=== PATIENT | female | born 1980 | race Caucasian/White ===

== ENCOUNTER 2018-06-20 22:56 | Inpatient (IN) ==
[2018-06-20] MEDS ORDERED: *HR* Dextrose 50 % in Water (Syg) 50 ML SYRINGE IVP PRN (23:15)
--- NOTE | 2018-06-20 23:17 | Emergency Department Note ---
Disposition Clinical Impression: DKA (diabetic ketoacidoses) Qualifiers: Diabetes mellitus type: type 1 Diabetes mellitus complication detail: without coma Qualified Code(s): E10.10 - Type 1 diabetes mellitus with ketoacidosis without coma Disposition: Admitted As Inpatient Condition: Fair Time of Disposition: 02:08 General Adult HPI - General Chief complaint: ED Nausea/Vomiting/Diarrhea Stated complaint: "Im in DKA" Time Seen by Provider: 06/20/18 23:14 Source: patient, family Limitations: no limitations Nursing Notes Reviewed: Yes Vital Signs Reviewed: Yes - History of Present Illness HPI Narrative: Patient is a 38-year-old female who presents to [facility] ED with a chief complaint of nausea and vomiting. States she feels like she is in diabetic ketoacidosis. Patient has a past medical history of type 1 diabetes with an insulin pump. States she has not gone into DKA except once over the last 5 years ever since she started on her insulin pump. States her blood sugars have been running in the 200s normally but then a little higher over the last month due to her recent stress of a divorce. States she has also been sick with a sinus infection about a week ago. States over the last day, her glucose has been running high in the 500s. Patient around 5 PM, she started having intractable nausea and vomiting. States she does have some epigastric abdominal pain but states she feels this is purely related to her vomiting. Denies any chest pain, difficulty breathing, recent cough, problems with urination or bowel movements. Onset (ago): hour(s) Location: abdomen Pain Severity: mild Pain Scale: 5 Quality: aching Consistency: intermittent Improves with: nothing Worsens with: other (vomiting) Associated symptoms: Reports: nausea/vomiting. Denies: chest pain, cough, fever /chills, headaches, shortness of breath, weakness Treatments Prior to Arrival: none - Related Data Previous Rx's Medication Instructions Recorded Ibuprofen [Motrin] 600 mg PO Q6HR PRN #24 tab 02/24/18 Allergies Allergy/AdvReac Type Severity Reaction Status Date / Time desvenlafaxine [From Pristiq] Allergy Swelling Verified 02/24/18 09:49 duloxetine [From Cymbalta] AdvReac Suicidal Verified 02/24/18 09:49 ideations All systems ED: reviewed and negative except as stated. Past Medical History - Past Medical History Attestation: Yes The following information was validated with the patient. 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 - Social History Smoking Status: Never smoker Smokeless Tobacco Status: No Alcohol use: Reports: none Drug use: Reports: none Physical Exam - General Limitations: no limitations General appearance: alert, in no apparent distress - Head Head exam: atraumatic, normocephalic, normal inspection - Eye Eye exam: Present: EOMI - ENT ENT exam: normal exam, normal oropharynx, mucous membranes dry - Neck Neck exam: Present: normal inspection, full ROM, trachea midline - Chest Chest inspection: Present: normal inspection, symmetric chest wall rise - Respiratory Respiratory exam: Present: normal lung sounds bilaterally - Cardiovascular Cardiovascular exam: Present: regular rate, normal rhythm, normal heart sounds - Abdominal Exam Abdominal exam: Present: soft, Non-Tender. Absent: tenderness, distention, guarding, rebound, rigidity - Extremities Exam Extremities exam: Present: normal inspection, full ROM. Absent: tenderness, pedal edema - Neurological Exam Neurological exam: Present: alert, oriented X3 - Psychiatric Psychiatric exam: Present: normal affect, normal mood - Skin Skin exam: Present: warm, dry, intact, normal color Course Course Narrative: Patient seen and examined. Patient with complaints of possible DKA. Lab work, VBG, serum ketones, urine analysis ordered. We will start with a 2 L fluid bolus. We will get a milligrams of Zofran for nausea. - Reevaluation(s) Reevaluation #1: Labwork shows elevated serum ketones greater than 2, a bicarbonate of 10, anion gap of 25, and pH of 7.26 on VBG. Patient is in DKA. Insulin drip ordered. We will admit to hospitalist. Time: 01:12 Reevaluation #2: Discussed with the hospitalist Dr. Stephens who has accepted patient for admission. He would like patient to be given 2 g of Rocephin to cover her for her possible sinusitis. Time: 02:07 Vital Signs Temperature 98.0 F 06/20/18 23:02 Pulse Rate 118 06/20/18 23:02 Respiratory Rate 16 06/20/18 23:02 Blood Pressure 146/91 06/20/18 23:02 O2 Sat by Pulse Oximetry 100 06/20/18 23:02 Temperature 98.0 F 06/20/18 23:02 Pulse Rate 117 06/21/18 04:15 Respiratory Rate 16 06/21/18 02:45 Blood Pressure 111/62 06/21/18 02:45 O2 Sat by Pulse Oximetry 99 06/21/18 02:45 Oxygen Delivery Oxygen Delivery Room Air Medical Decision Making - Medical Records Medical records reviewed: Yes I reviewed the patient's medical records. - Lab Data Lab results reviewed: Yes I reviewed the patient's lab results. Result diagrams: 06/21/18 06:17 06/21/18 03:58 Lab Results 06/20/18 06/20/18 06/20/18 Range/Units 23:00 23:01 23:08 WBC (4.3-11.1) K/mcL RBC (3.82-4.97) M/mcL Hgb (11.5-15.4) g/dL Hct (35.3-44.9) % MCV (83.0-100.0) fL MCH (28.0-33.3) pg MCHC (31.6-35.5) g/dL RDW (11.5-14.5) % Plt Count (140-400) K/mcL MPV (9.4-12.4) fL Immature Gran % (0-4) % Seg Neutrophils % % Lymphocytes % % Monocytes % % Eosinophils % % Basophils % % Neutrophils # (1.6-8.9) K/mcL Lymphocytes # (0.6-4.6) K/mcL Monocytes # (0.0-1.3) K/mcL Eosinophils # (0.0-0.6) K/mcL Basophils # (0.0-0.2) K/mcL VBG pH (7.32-7.42) pH Units VBG pCO2 (41-51) mmHg VBG pO2 (25-50) mmHg VBG HCO3 (21-27) mEq/L Sodium (136-145) mEq/L Potassium (3.5-5.1) mEq/L Chloride (98-107) mEq/L Carbon Dioxide (23-29) mEq/L BUN (6-20) mg/dL Creatinine (0.60-1.20) mg/dL Est GFR ( Amer) (> 60) Est GFR (Non-Af Amer) (> 60) BUN/Creatinine Ratio (6-26) Glucose (70-105) mg/dL POC Glucose 559 H* 562 H* (70-99) mg/dL Calculated Osmolality (280-300) Lactic Acid (0.5-2.2) mmol/L Calcium (8.6-10.3) mg/dL Troponin I (< 0.04) ng/mL Lipase (11-82) Units/L Beta-Hydroxybutyric Acd (0.02-0.27) mmol/L Urine Color Yellow (Yellow) Urine Clarity Clear (Clear) Urine pH 5.5 (5.0-8.0) pH Units Ur Specific [place] 1.029 H (1.010-1.025) Urine Protein 100 H (Neg-Trace) mg/dL Urine Glucose (UA) >=1000 H (Normal) mg/dL Urine Ketones 80 H (Negative) mg/dL Urine Blood Trace H (Negative) Urine Nitrite Negative (Negative) Urine Bilirubin Negative (Negative) Urine Urobilinogen Normal (Normal) mg/dL Ur Leukocyte Esterase Negative (Negative) Urine Microscopic RBC 0-3 (0-3) per hpf Urine Microscopic WBC 0-3 (0-3) per hpf Ur Squamous Epith Cells Many H (None-Few) per lpf Urine Bacteria None Seen (None-Few) per hpf Hyaline Casts None Seen (None-Few) per lpf Ur Culture Indicated? NO (NO) Urine Test (Negative) 06/20/18 06/20/18 06/20/18 Range/Units 23:08 23:15 23:31 WBC 16.7 H (4.3-11.1) K/mcL RBC 4.53 (3.82-4.97) M/mcL Hgb 13.7 (11.5-15.4) g/dL Hct 39.6 (35.3-44.9) % MCV 87.4 (83.0-100.0) fL MCH 30.2 (28.0-33.3) pg MCHC 34.6 (31.6-35.5) g/dL RDW 12.3 (11.5-14.5) % Plt Count 361 (140-400) K/mcL MPV 9.7 (9.4-12.4) fL Immature Gran % 0.6 (0-4) % Seg Neutrophils % 90.2 % Lymphocytes % 6.5 % Monocytes % 2.3 % Eosinophils % 0.1 % Basophils % 0.3 % Neutrophils # 15.1 H (1.6-8.9) K/mcL Lymphocytes # 1.1 (0.6-4.6) K/mcL Monocytes # 0.4 (0.0-1.3) K/mcL Eosinophils # 0.0 (0.0-0.6) K/mcL Basophils # 0.1 (0.0-0.2) K/mcL VBG pH (7.32-7.42) pH Units VBG pCO2 (41-51) mmHg VBG pO2 (25-50) mmHg VBG HCO3 (21-27) mEq/L Sodium (136-145) mEq/L Potassium (3.5-5.1) mEq/L Chloride (98-107) mEq/L Carbon Dioxide (23-29) mEq/L BUN (6-20) mg/dL Creatinine (0.60-1.20) mg/dL Est GFR ( Amer) (> 60) Est GFR (Non-Af Amer) (> 60) BUN/Creatinine Ratio (6-26) Glucose (70-105) mg/dL POC Glucose (70-99) mg/dL Calculated Osmolality (280-300) Lactic Acid (0.5-2.2) mmol/L Calcium (8.6-10.3) mg/dL Troponin I < 0.03 (< 0.04) ng/mL Lipase (11-82) Units/L Beta-Hydroxybutyric Acd (0.02-0.27) mmol/L Urine Color (Yellow) Urine Clarity (Clear) Urine pH (5.0-8.0) pH Units Ur Specific [place] (1.010-1.025) Urine Protein (Neg-Trace) mg/dL Urine Glucose (UA) (Normal) mg/dL Urine Ketones (Negative) mg/dL Urine Blood (Negative) Urine Nitrite (Negative) Urine Bilirubin (Negative) Urine Urobilinogen (Normal) mg/dL Ur Leukocyte Esterase (Negative) Urine Microscopic RBC (0-3) per hpf Urine Microscopic WBC (0-3) per hpf Ur Squamous Epith Cells (None-Few) per lpf Urine Bacteria (None-Few) per hpf Hyaline Casts (None-Few) per lpf Ur Culture Indicated? (NO) Urine Test Negative (Negative) 06/20/18 06/20/18 06/20/18 Range/Units 23:54 23:54 23:54 WBC (4.3-11.1) K/mcL RBC (3.82-4.97) M/mcL Hgb (11.5-15.4) g/dL Hct (35.3-44.9) % MCV (83.0-100.0) fL MCH (28.0-33.3) pg MCHC (31.6-35.5) g/dL RDW (11.5-14.5) % Plt Count (140-400) K/mcL MPV (9.4-12.4) fL Immature Gran % (0-4) % Seg Neutrophils % % Lymphocytes % % Monocytes % % Eosinophils % % Basophils % % Neutrophils # (1.6-8.9) K/mcL Lymphocytes # (0.6-4.6) K/mcL Monocytes # (0.0-1.3) K/mcL Eosinophils # (0.0-0.6) K/mcL Basophils # (0.0-0.2) K/mcL VBG pH (7.32-7.42) pH Units VBG pCO2 (41-51) mmHg VBG pO2 (25-50) mmHg VBG HCO3 (21-27) mEq/L Sodium 128 L (136-145) mEq/L Potassium 5.2 H (3.5-5.1) mEq/L Chloride 93 L (98-107) mEq/L Carbon Dioxide 10 L* (23-29) mEq/L BUN 33 H (6-20) mg/dL Creatinine 1.24 H (0.60-1.20) mg/dL Est GFR ( Amer) 59 L (> 60) Est GFR (Non-Af Amer) 49 L (> 60) BUN/Creatinine Ratio 27 H (6-26) Glucose 638 H* (70-105) mg/dL POC Glucose (70-99) mg/dL Calculated Osmolality 303 H (280-300) Lactic Acid 1.7 (0.5-2.2) mmol/L Calcium 9.4 (8.6-10.3) mg/dL Troponin I (< 0.04) ng/mL Lipase 5 L (11-82) Units/L Beta-Hydroxybutyric Acd > 2.00 H (0.02-0.27) mmol/L Urine Color (Yellow) Urine Clarity (Clear) Urine pH (5.0-8.0) pH Units Ur Specific [place] (1.010-1.025) Urine Protein (Neg-Trace) mg/dL Urine Glucose (UA) (Normal) mg/dL Urine Ketones (Negative) mg/dL Urine Blood (Negative) Urine Nitrite (Negative) Urine Bilirubin (Negative) Urine Urobilinogen (Normal) mg/dL Ur Leukocyte Esterase (Negative) Urine Microscopic RBC (0-3) per hpf Urine Microscopic WBC (0-3) per hpf Ur Squamous Epith Cells (None-Few) per lpf Urine Bacteria (None-Few) per hpf Hyaline Casts (None-Few) per lpf Ur Culture Indicated? (NO) Urine Test (Negative) 06/21/18 06/21/18 Range/Units 00:10 03:58 WBC (4.3-11.1) K/mcL RBC (3.82-4.97) M/mcL Hgb (11.5-15.4) g/dL Hct (35.3-44.9) % MCV (83.0-100.0) fL MCH (28.0-33.3) pg MCHC (31.6-35.5) g/dL RDW (11.5-14.5) % Plt Count (140-400) K/mcL MPV (9.4-12.4) fL Immature Gran % (0-4) % Seg Neutrophils % % Lymphocytes % % Monocytes % % Eosinophils % % Basophils % % Neutrophils # (1.6-8.9) K/mcL Lymphocytes # (0.6-4.6) K/mcL Monocytes # (0.0-1.3) K/mcL Eosinophils # (0.0-0.6) K/mcL Basophils # (0.0-0.2) K/mcL VBG pH 7.23 L (7.32-7.42) pH Units VBG pCO2 31 L (41-51) mmHg VBG pO2 66 H (25-50) mmHg VBG HCO3 13 L (21-27) mEq/L Sodium 133 L (136-145) mEq/L Potassium 4.2 (3.5-5.1) mEq/L Chloride 102 (98-107) mEq/L Carbon Dioxide 7 L* (23-29) mEq/L BUN 34 H (6-20) mg/dL Creatinine 1.16 (0.60-1.20) mg/dL Est GFR ( Amer) > 60 (> 60) Est GFR (Non-Af Amer) 53 L (> 60) BUN/Creatinine Ratio 29 H (6-26) Glucose 449 H (70-105) mg/dL POC Glucose (70-99) mg/dL Calculated Osmolality 303 H (280-300) Lactic Acid (0.5-2.2) mmol/L Calcium 8.7 (8.6-10.3) mg/dL Troponin I (< 0.04) ng/mL Lipase (11-82) Units/L Beta-Hydroxybutyric Acd (0.02-0.27) mmol/L Urine Color (Yellow) Urine Clarity (Clear) Urine pH (5.0-8.0) pH Units Ur Specific [place] (1.010-1.025) Urine Protein (Neg-Trace) mg/dL Urine Glucose (UA) (Normal) mg/dL Urine Ketones (Negative) mg/dL Urine Blood (Negative) Urine Nitrite (Negative) Urine Bilirubin (Negative) Urine Urobilinogen (Normal) mg/dL Ur Leukocyte Esterase (Negative) Urine Microscopic RBC (0-3) per hpf Urine Microscopic WBC (0-3) per hpf Ur Squamous Epith Cells (None-Few) per lpf Urine Bacteria (None-Few) per hpf Hyaline Casts (None-Few) per lpf Ur Culture Indicated? (NO) Urine Test (Negative) - Radiology Data Radiology results reviewed: Yes I reviewed the patient's radiology results. Chest X-Ray 06/21/18 23:31 IMPRESSION: No acute cardiopulmonary disease. Low lung volumes. D/ / Chavo Hensley MD / Chavo Hensley MD Interpreting Provider: Chavo Hensley MD - EKG Data EKG #1 EKG attestation: Yes I reviewed and interpreted this EKG. EKG results narrative: EKG done at 0005 shows sinus tachycardia with a rate of [address] elevation or depression noted. Normal axis. Attestation Statement - Attestation Attestation: I, Fredo Erwin, examined this patient and my medical decision-making was reviewed with the CHILD SUPPORT SPECIALIST/PA/Advanced Practice Nurse/Resident Physician. I agree with the documented findings, disposition and treatment plan as described except to the extent set forth below. 38-year-old female presents emergency Department with concerns of possible DKA. Patient states she has a long history of diabetes and uses an insulin pump. Patient has moved the side of her insulin pump multiple times however she continues to see her blood sugar increasing. Patient denies chest pain, shortness breath, abdominal pain, vaginal bleeding, vaginal discharge. No recent changes in her medications. She is otherwise fairly well-controlled with her diabetes. Patient has a large anion gap on laboratory evaluation. She has evidence of ketones on laboratory testing. We are unable to find a cause for her hyperglycemia. She was given IV fluids in emergency department. She will be admitted to the hospitalist for further care and evaluation.
[2018-06-20 23:25] LABS: Bilirubin,Urine Negative (Negative); Blood,Urine Trace (Negative); Clarity,Urine Clear (Clear); Color,Urine Yellow (Yellow); Glucose,Urine (UA) >=1000 mg/dL (Normal); Ketones,Urine 80 mg/dL (Negative); Leukocyte Esterase,Urine Negative (Negative); Nitrite,Urine Negative (Negative); PH,Urine 5.5 pH Units (5.0-8.0); Protein,Urine 100 mg/dL (Neg-Trace); Specific Gravity,Urine 1.029 (1.010-1.025); Urobilinogen,Urine Normal (Normal)
[2018-06-20 23:26] LABS: Bacteria,Urine None Seen per hpf (None-Few); Hyaline Casts,Urine None Seen per lpf (None-Few); RBC,Urine 0-3 per hpf (0-3); Squamous Epithelial Cell,Urine Many per lpf (None-Few); WBC,Urine 0-3 per hpf (0-3)
[2018-06-21 00:15] LABS: VBG HCO3 13 mEq/L (21-27); VBG PCO2 31 mmHg (41-51); VBG PH 7.23 pH Units (7.32-7.42); VBG PO2 66 mmHg (25-50)
[2018-06-21] MEDS: 0.9 % Sodium Chloride 1,000 ML IVC SCH ×2 (00:16→01:45)
[2018-06-21 00:35] LABS: Basophils # 0.1 K/mcL (0.0-0.2); Basophils % 0.3 %; Eosinophils % 0.1 %; Hematocrit 39.6 % (35.3-44.9); Hemoglobin 13.7 g/dL (11.5-15.4); Immature Granulocytes % 0.6 % (0-4); Lymphocytes # 1.1 K/mcL (0.6-4.6); Lymphocytes % 6.5 %; Mean Corpuscular HGB Conc 34.6 g/dL (31.6-35.5); Mean Corpuscular Hemoglobin 30.2 pg (28.0-33.3); Mean Corpuscular Volume 87.4 fL (83.0-100.0); Mean Platelet Volume 9.7 fL (9.4-12.4); Monocytes # 0.4 K/mcL (0.0-1.3); Monocytes % 2.3 %; Neutrophils # 15.1 K/mcL (1.6-8.9); Platelet Count 361 K/mcL (140-400); Red Blood Count 4.53 M/mcL (3.82-4.97); Red Cell Distribution Width 12.3 % (11.5-14.5); Segmented Neutrophils % 90.2 %
[2018-06-21 00:44] LABS: Calcium 9.4 mg/dL (8.6-10.3); Potassium 5.2 mEq/L (3.5-5.1)
[2018-06-21] MEDS ORDERED: Ondansetron 4 MG/2 ML VIAL IVP ONE (00:53)
[2018-06-21] MEDS ORDERED: Ondansetron 4 MG/2 ML VIAL ONE (00:53)
[2018-06-21] MEDS: Insulin Human Regular 100 UNIT in 0.9 % Sodium Chloride 100 ML IVC SCH ×2 (01:45→08:11)
[2018-06-21] MEDS ORDERED: Naloxone 0.4 MG/ML INJ IVP PRN ×2 (01:47→03:35)
[2018-06-21] MEDS ORDERED: Insulin Regular, Human 100 UNIT/ML IV PRN (01:47)
[2018-06-21] MEDS ORDERED: 0.45 % Sodium Chloride w/KCl 20 MEQ/1,000 ML MLS IVC PRN (02:00)
[2018-06-21] MEDS ORDERED: cefTRIAXone 2,000 MG in Water for inj. (sterile) 20 ML 20 ML IVP ONE (02:02)
[2018-06-21] MEDS ORDERED: Ondansetron 4 MG/2 ML VIAL IVP PRN (02:18)
--- NOTE | 2018-06-21 02:26 | Internal Med History&Physical ---
<Oneil Sellers - Last Filed: 06/21/18 05:27> Date of Encounter: 06/21/18 Time of Encounter: 02:22 Internal Medicine - H&P: HPI Chief complaint: Im in DKA Admitted From: Home Plans for Post Hospital Care: Home History of present illness: Ms. Zapata is a 38 year old female with history of type 1 diabetes mellitus presents with chief complaint of "I am in DKA". Patient reports for the past 48 hours she has been feeling weak, tired and her glucose has been running high in the 500s. She has had DKA in the past, with her previous episode being 5 years ago and she feels the same way. She also reports nausea, vomiting and abdominal pain secondary to this. She denies fever, diaphoresis, chills. Normally her glucose runs in the 200s. She reports she has been going through a lot of stress in her life including divorce. She also reports having a upper respiratory infection 2 weeks ago where she was started on doxycycline for 7 days which improved her symptoms but her symptoms returned 5 days ago. 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 She reports a sore throat, postnasal drip, sinus congestion. She denies cough, chest congestion, shortness of breath. Patient was found in DKA and was started on IV insulin and given 2 L IV fluids. VBG pH was 7.23. She was also given IM ceftriaxone for possible sinusitis in the ER. Past Med Surg Social Fam HX - Past Medical History Medical history: diabetes, hyperlipidemia, renal disease (CK D2), other Additional medical history: Type I diabetic. Stage II renal disease. Retinopathy. Neuropathy Psychiatric history: anxiety - Past Surgical History Additional surgical history: tubes tied - Social History Smoking Status: Never smoker Smokeless Tobacco Status: No Alcohol use: none Drug use: none Occupational status: employed Current living situation: Home - Independent Activity Level: Independent ambulation - Family History Mother Hx Family Cardiac Disorders: Yes (Hypertension) Father Hx Family Cardiac Disorders: Yes Internal Medicine - H&P: Meds Amlodipine Besylate 10 mg PO DAILY 06/21/18 [History] Atorvastatin [Lipitor] 40 mg PO HS 06/21/18 [History] Buspirone HCl [Buspar] 10 mg PO Q12HR PRN 06/21/18 [History] Carvedilol 12.5 mg PO BID 06/21/18 [History] FLUoxetine HCl [Fluoxetine HCl] 40 mg PO DAILY 06/21/18 [History] Gabapentin [Neurontin] 300 mg PO TID PRN 06/21/18 [History] Levothyroxine Sodium [Levoxyl] 50 mcg PO 06/21/18 [History] Losartan [Cozaar] 25 mg PO DAILY 06/21/18 [History] Subcutaneous Insulin Pump [T:Slim] 1 each MC AD 06/21/18 [History] hydroCHLOROthiazide [Hydrochlorothiazide] 25 mg PO DAILY 06/21/18 [History] 3 Allergy/AdvReac Type Severity Reaction Status Date / Time desvenlafaxine [From Pristiq] Allergy Swelling Verified 06/21/18 14:48 duloxetine [From Cymbalta] AdvReac Suicidal Verified 06/21/18 14:48 ideations All Systems PM: A 10-system review of systems was performed and is negative for pertinent findings except as documented above in the HPI. Review of systems: Constitutional: Denies fever, chills HEENT: Denies headache, trauma, blurry vision, eye discharge, ear pain, ear discharge neck pain and reports sore throat, rhinorrhea Heart: Denies chest pain palpitations, LE edema Lungs: Denies shortness of breath cough. Abdomen:Reports abdominal pain, nausea, vomiting. Denies diarrhea MSK: Denies back pain, falls, joint pain Kidney: Denies dysuria, hematuria Skin: Denies rash, ulcers Neuro: Denies numbness and tingling Psych: denies axniety, depression - Constitutional Vitals: Temp Pulse Resp BP Pulse Ox 98.0 F 118 16 95/56 99 06/20/18 23:02 06/21/18 02:05 06/21/18 02:05 06/21/18 02:05 06/21/18 02:05 Exam: General: pleasant, without distress HEENT: Head atraumatic, normocephalic, EOMI, PERRL, absent ear discharge or trauma, Moist Mucous Membranes, uvula midline, absent pharyngeal erythema Neck: nontender to palpation, absent lymphadenopathy, Cardiovascualr: Tachycardic and regular rhythm with no murmur, gallops or rubs, absent pedal edema, radial pulses 2 out of 4 Lungs: Clear to auscultation bilaterally, not in respiratory distress Abdomen: Soft nontender, nondistended positive bowel sounds, absent hepatomegaly Skin: warm and dry, absent rash, open wounds, nodules MSK: absent clubbing, cyanosis, joints without swelling Neuro: Cranial nerves II through XII intact, UE and LE sensation equal bilaterally, UE and LEstrength 5/5, alert oriented 3, Psych: good insight and judgement Internal Med - H&P Results - Labs CBC & Chem 7: 06/20/18 23:15 06/21/18 03:58 Labs: Short CBC 06/20/18 Range/Units 23:15 WBC 16.7 H (4.3-11.1) K/mcL Hgb 13.7 (11.5-15.4) g/dL Hct 39.6 (35.3-44.9) % Plt Count 361 (140-400) K/mcL Neutrophils # 15.1 H (1.6-8.9) K/mcL BMP 06/20/18 23:54 Sodium 128 L Potassium 5.2 H Chloride 93 L Carbon Dioxide 10 L* BUN 33 H Creatinine 1.24 H Glucose 638 H* Calcium 9.4 Cardiac Enzymes 06/20/18 Range/Units 23:31 Troponin I < 0.03 (< 0.04) ng/mL Urine 06/20/18 Range/Units 23:08 Urine Color Yellow (Yellow) Urine Clarity Clear (Clear) Urine pH 5.5 (5.0-8.0) pH Units Ur Specific [place] 1.029 H (1.010-1.025) Urine Protein 100 H (Neg-Trace) mg/dL Urine Glucose (UA) >=1000 H (Normal) mg/dL - ABG Interpretation ABG results: 06/21/18 00:10 VBG pH 7.23 L VBG pCO2 31 L VBG pO2 66 H VBG HCO3 13 L - Impressions ITS Impressions Chest X-Ray 06/21/18 23:31 IMPRESSION: No acute cardiopulmonary disease. Low lung volumes. D/ / Chavo Hensley MD / Chavo Hensley MD Interpreting Provider: Chavo Hensley MD - Assessment and plan (1) DKA (diabetic ketoacidoses) Status: Acute Assessment and plan: 38-year-old female presented with chief complaint of "I am in DKA" inciting factor: recent stressful life events, sinusitis She was found to have a anion gap of 25, BMP glucose was 638, VBG pH was 7.23, bicarbonate was 10 Patient was started on IV insulin, given 2L IV fluids in the ER Zofran for nausea Started on DKA protocol. 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 Qualifiers: Diabetes mellitus type: type 1 Diabetes mellitus complication detail: without coma Qualified Code(s): E10.10 - Type 1 diabetes mellitus with ketoacidosis without coma (2) Acute on chronic kidney failure Status: Acute Assessment and plan: acute on CKD2 scr 1.24 started on IVF per DKA protocol repeat BMP Qualifiers: Acute renal failure type: unspecified Chronic kidney disease stage: stage 2 (mild) Qualified Code(s): N17.9 - Acute kidney failure, unspecified; N18.2 - Chronic kidney disease, stage 2 (mild) (3) Sinusitis Status: Acute Assessment and plan: patient reports post nasal drip, maxillary sinus pressure, sinus congestion, sore throat denies cough likely viral. Denies fevers, chills. 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 treated with doxycycline outpatient for 7 days (improved symptoms initially but then her symptoms returned) patient was given IM rocephin in ER afrin for symptomatic relief Qualifiers: Sinusitis location: maxillary Chronicity: acute Recurrence: recurrent Qualified Code(s): J01.01 - Acute recurrent maxillary sinusitis (4) History of hypothyroidism Status: Acute Assessment and plan: continue home thyroid medication (5) Hx of hyperlipidemia Status: Acute Assessment and plan: continue home statin. - Time Spent With Patient Total time spent is greater than 50% in coordination of care (as documented) at patient's floor/unit and/or counseling patient: <Uriel Yang - Last Filed: 06/25/18 11:23> Date of Encounter: 06/21/18 Internal Medicine - H&P: HPI History of present illness: Ms. Zapata is a 38 year old female All Systems PM: A 10-system review of systems was performed and is negative for pertinent findings except as documented above in the HPI. - Constitutional Vitals: Temp Pulse Resp BP Pulse Ox 98.0 F 73 18 129/76 96 06/22/18 07:24 06/22/18 07:24 06/22/18 07:24 06/22/18 07:24 06/22/18 07:24 Internal Med - H&P Results - Labs CBC & Chem 7: 06/22/18 03:22 06/22/18 03:22 - Impressions ITS Impressions Chest X-Ray 06/21/18 23:31 IMPRESSION: No acute cardiopulmonary disease. Low lung volumes. D/ / Chavo Hensley MD / Chavo Hensley MD Interpreting Provider: Chavo Hensley MD - Assessment and plan (1) DKA (diabetic ketoacidoses) Status: Acute Qualifiers: Diabetes mellitus type: type 1 Diabetes mellitus complication detail: without coma Qualified Code(s): E10.10 - Type 1 diabetes mellitus with ketoacidosis without coma (2) Sinusitis Status: Acute Qualifiers: Sinusitis location: maxillary Chronicity: acute Recurrence: recurrent Qualified Code(s): J01.01 - Acute recurrent maxillary sinusitis (3) Hx of hyperlipidemia Status: Chronic (4) Acute on chronic kidney failure Status: Resolved Qualifiers: Acute renal failure type: unspecified Chronic kidney disease stage: stage 2 (mild) Qualified Code(s): N17.9 - Acute kidney failure, unspecified; N18.2 - Chronic kidney disease, stage 2 (mild) (5) Morbid obesity with BMI of 45.0-49.9, adult Status: Chronic - Time Spent With Patient Total time spent is greater than 50% in coordination of care (as documented) at patient's floor/unit and/or counseling patient: - Attending Attestation Patient seen and examined. Case discussed with Resident. Agree with A/P. Will continue treatment for DKA likely secondary to recent stress and URI.
[2018-06-21] MEDS ORDERED: Oxymetazoline Nasal SPRAY BOTTLE NS PRN (02:38)
[2018-06-21] MEDS ORDERED: 0.9 % Sodium Chloride w KCl 20 MEQ/1,000 ML MLS IVC ONE (04:06)
[2018-06-21 04:38] LABS: BUN/Creatinine Ratio 29 (6-26); Blood Urea Nitrogen 34 mg/dL (6-20); Calcium 8.7 mg/dL (8.6-10.3); Carbon Dioxide 7 mEq/L (23-29); Chloride 102 mEq/L (98-107); Glucose 449 mg/dL (70-105); Osmolality,Calculated 303 (280-300); Potassium 4.2 mEq/L (3.5-5.1); Sodium 133 mEq/L (136-145); eGFR For Non-African Americans 53 (> 60)
[2018-06-21] MEDS: D5% in 0.45% NACL w KCl 20 MEQ/1,000 ML MLS IVC PRN ×2 (04:53→08:26)
[2018-06-21 06:31] LABS: Basophils % 0.2 %; Hematocrit 34.9 % (35.3-44.9); Immature Granulocytes % 0.7 % (0-4); Lymphocytes # 1.3 K/mcL (0.6-4.6); Lymphocytes % 7.5 %; Mean Corpuscular HGB Conc 33.5 g/dL (31.6-35.5); Mean Corpuscular Hemoglobin 30.1 pg (28.0-33.3); Mean Corpuscular Volume 89.7 fL (83.0-100.0); Mean Platelet Volume 9.4 fL (9.4-12.4); Monocytes # 0.9 K/mcL (0.0-1.3); Monocytes % 5.4 %; Neutrophils # 14.9 K/mcL (1.6-8.9); Platelet Count 302 K/mcL (140-400); Red Blood Count 3.89 M/mcL (3.82-4.97); Red Cell Distribution Width 12.3 % (11.5-14.5); Segmented Neutrophils % 86.2 %
[2018-06-21 06:32] LABS: Hemoglobin 11.7 g/dL (11.5-15.4)
[2018-06-21 06:53] LABS: BUN/Creatinine Ratio 29 (6-26); Blood Urea Nitrogen 31 mg/dL (6-20); Calcium 8.2 mg/dL (8.6-10.3); Carbon Dioxide 12 mEq/L (23-29); Chloride 105 mEq/L (98-107); Glucose 271 mg/dL (70-105); Osmolality,Calculated 292 (280-300); Potassium 4.1 mEq/L (3.5-5.1); Sodium 133 mEq/L (136-145); eGFR For Non-African Americans 59 (> 60)
[2018-06-21] MEDS ORDERED: Insulin Human Regular 100 UNIT in 0.9 % Sodium Chloride 100 ML IVC SCH (08:39)
[2018-06-21 08:55] LABS: BUN/Creatinine Ratio 27 (6-26); Blood Urea Nitrogen 29 mg/dL (6-20); Carbon Dioxide 17 mEq/L (23-29); Chloride 105 mEq/L (98-107); Potassium 4.2 mEq/L (3.5-5.1); Sodium 134 mEq/L (136-145)
[2018-06-21 08:56] LABS: Calcium 8.5 mg/dL (8.6-10.3); Glucose 187 mg/dL (70-105); Osmolality,Calculated 289 (280-300); eGFR For Non-African Americans 58 (> 60)
[2018-06-21 09:04] LABS: Estimated Average Glucose 243 mg/dl; Hemoglobin A1C 10.1 %
[2018-06-21 11:51] LABS: BUN/Creatinine Ratio 27 (6-26); Blood Urea Nitrogen 25 mg/dL (6-20); Calcium 8.1 mg/dL (8.6-10.3); Carbon Dioxide 22 mEq/L (23-29); Chloride 107 mEq/L (98-107); Glucose 170 mg/dL (70-105); Osmolality,Calculated 286 (280-300); Potassium 3.8 mEq/L (3.5-5.1); Sodium 134 mEq/L (136-145); eGFR For Non-African Americans > 60 (> 60)
[2018-06-21] MEDS: Acetaminophen 325 MG TABLET PO PRN ×2 (11:58→18:42)
[2018-06-21] MEDS ORDERED: *HR* Dextrose 50 % in Water (Syg) 50 ML SYRINGE IVP PRN (13:05)
[2018-06-21] MEDS ORDERED: Dextrose Gel 15 GM/37.5 ML TUBE PO PRN (13:05)
--- NOTE | 2018-06-21 13:14 | Internal Med Progress Note ---
<Vikram,Dieter M - Last Filed: 06/21/18 13:08> Hospitalist Progress Note - Encounter Date of Encounter: 06/21/18 Time of Encounter: 09:00 - Subjective Interval History: Patient seen and examined at bedside. Patient resting comfortably during this time. Reports she is feeling much improved since her admission. She did have some continued nausea overnight, zofran was helpful though. She continues to complain of sinus pain and congestion, remains afebrile and denies chills, cough , SOB, CP. Likely viral, will hold ABX at this time and continue to follow. Her anion gap is down to 5 and bicarb is up to 22, last glucose check was 170. Will switch to SQ insulin. - Exam Vitals: Temp Pulse Resp BP Pulse Ox 98.8 F 88 16 121/73 99 06/21/18 11:00 06/21/18 11:00 06/21/18 11:00 06/21/18 11:00 06/21/18 11:00 Exam: General: A&Ox3, NAD Head: atraumatic normocephalic, mild maxillary sinus pain to palpation Eyes: non-icteric, EOMI Throat: mucus membranes dry, trachea/uvula/toungue midline, no lymphadenopathy CV: RRR, normal s1 and s2, no murmurs Resp: CTAB, no wheezing rales rhonchi ABD: non-distended, slightly tender epigastrum, no guarding rigidity or rebound Extremities: multiple sores and excoriations BLE, +1 pedal pulses, no edema - Assessment and Plan (1) DKA (diabetic ketoacidoses) Current Visit: Yes Status: Acute Assessment and Plan: 38-year-old female presented with chief complaint of "I am in DKA" inciting factor: recent stressful life events, sinusitis She was found to have a anion gap of 25, BMP glucose was 638, VBG pH was 7.23, bicarbonate was 10 Patient was started on IV insulin, given 2L IV fluids in the ER Zofran for nausea Started on DKA protocol. 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 (2) Acute on chronic kidney failure Current Visit: Yes Status: Acute Assessment and Plan: Known history of CKD - Creatinine up to 1.4 on admission - Baseline somewhere between - Likely 2/2 ketones/glucose in setting of DKA - Will monitor for resolution (3) Sinusitis Current Visit: Yes Status: Acute Assessment and Plan: Continued complaints of Sinus pain - Afebrile, likely viral - Did receive Rocephin 2gm in ED for coverage - Will continue to monitor vitals/symptoms - Nasal spray PRN for symptomatic relief (4) History of hypothyroidism Current Visit: Yes Status: Chronic Assessment and Plan: Continue home meds Code(s): Z86.39 - Personal history of other endocrine, nutritional and metabolic disease (5) Hx of hyperlipidemia Current Visit: Yes Status: Chronic Assessment and Plan: Continue home meds Code(s): Z86.39 - Personal history of other endocrine, nutritional and metabolic disease - Time Spent with Patient Total time spent is greater than 50% in coordination of care (as documented) at patient's floor/unit and/or counseling patient: Internal Medicine: Result - Labs CBC & Chem 7: 06/21/18 06:17 06/21/18 10:53 Labs: Short CBC 06/21/18 Range/Units 06:17 WBC 17.3 H (4.3-11.1) K/mcL Hgb 11.7 D (11.5-15.4) g/dL Hct 34.9 L (35.3-44.9) % Plt Count 302 (140-400) K/mcL Neutrophils # 14.9 H (1.6-8.9) K/mcL BMP 06/21/18 06/21/18 06/21/18 06:17 07:49 10:53 Sodium 133 L 134 L 134 L Potassium 4.1 4.2 3.8 Chloride 105 105 107 Carbon Dioxide 12 L 17 L 22 L BUN 31 H 29 H 25 H Creatinine 1.06 1.07 0.93 Glucose 271 H 187 H 170 H Calcium 8.2 L 8.5 L 8.1 L - Impressions Impressions Chest X-Ray 06/21/18 23:31 IMPRESSION: No acute cardiopulmonary disease. Low lung volumes. D/ / Chavo Hensley MD / Chavo Hensley MD Interpreting Provider: Chavo Hensley MD Consult Discharge Plan - Plan Referrals: Sophia Foss, [facility] REP [Primary Care Provider] - 07/04/18 11:00 am (Please show up at 1045 per the office) <Yas Martin - Last Filed: 06/21/18 14:02> Hospitalist Progress Note - Encounter Date of Encounter: 06/21/18 Time of Encounter: 10:40 - Subjective Interval History: Patient lying down in bed. Comfortable. Feels better overall. No new episodes of nausea or vomiting today. Denies any fevers or chills. Does have postnasal drip and sinus pressure but it has improved compared to yesterday. No fevers or chills reported overnight. - Exam Vitals: Temp Pulse Resp BP Pulse Ox 98.8 F 88 16 121/73 99 06/21/18 11:00 06/21/18 11:00 06/21/18 11:00 06/21/18 11:00 06/21/18 11:00 - Assessment and Plan (1) DKA (diabetic ketoacidoses) Current Visit: Yes Status: Acute Assessment and Plan: Clinically improving. We will continue IV fluids and insulin drip per DKA protocol and transition to subcutaneous insulin once anion gap is closed and bicarbonate levels improved. Will keep nothing by mouth till then. Will give long-acting insulin prior to transitioning to subcutaneous insulin regimen. Moderate risk for complications. (2) Sinusitis Current Visit: Yes Status: Acute Assessment and Plan: Clear postnasal drip. No current indication for antibiotics. Patient already completed treatment with doxycycline as outpatient. However if she develops fever, cough chills and increased sputum production, we will start her on Augmentin. (3) Hx of hyperlipidemia Current Visit: Yes Status: Chronic (4) Acute on chronic kidney failure Current Visit: Yes Status: Resolved Assessment and Plan: Now resolved. (5) Morbid obesity with BMI of 45.0-49.9, adult Current Visit: Yes Status: Chronic - Time Spent with Patient Total time spent is greater than 50% in coordination of care (as documented) at patient's floor/unit and/or counseling patient: Internal Medicine: Result - Labs CBC & Chem 7: 06/21/18 06:17 06/21/18 12:47 Labs: Short CBC 06/21/18 Range/Units 06:17 WBC 17.3 H (4.3-11.1) K/mcL Hgb 11.7 D (11.5-15.4) g/dL Hct 34.9 L (35.3-44.9) % Plt Count 302 (140-400) K/mcL Neutrophils # 14.9 H (1.6-8.9) K/mcL BMP 06/21/18 06/21/18 06/21/18 06:17 07:49 10:53 Sodium 133 L 134 L 134 L Potassium 4.1 4.2 3.8 Chloride 105 105 107 Carbon Dioxide 12 L 17 L 22 L BUN 31 H 29 H 25 H Creatinine 1.06 1.07 0.93 Glucose 271 H 187 H 170 H Calcium 8.2 L 8.5 L 8.1 L 06/21/18 12:47 Sodium 136 Potassium 3.7 Chloride 109 H Carbon Dioxide 20 L BUN 22 H Creatinine 0.91 Glucose 148 H Calcium 8.0 L - Impressions Impressions Chest X-Ray 06/21/18 23:31 IMPRESSION: No acute cardiopulmonary disease. Low lung volumes. D/ / Chavo Hensley MD / Chavo Hensley MD Interpreting Provider: Chavo Hensley MD <Dieter Sue - Last Filed: 06/21/18 13:08> (1) DKA (diabetic ketoacidoses) Qualifiers: Diabetes mellitus type: type 1 Diabetes mellitus complication detail: without coma Qualified Code(s): E10.10 - Type 1 diabetes mellitus with ketoacidosis without coma (2) Acute on chronic kidney failure Qualifiers: Acute renal failure type: unspecified Chronic kidney disease stage: stage 2 ( mild) Qualified Code(s): N17.9 - Acute kidney failure, unspecified; N18.2 - Chronic kidney disease, stage 2 (mild) (3) Sinusitis Qualifiers: Sinusitis location: maxillary Chronicity: acute Recurrence: recurrent Qualified Code(s): J01.01 - Acute recurrent maxillary sinusitis <Yas Martin - Last Filed: 06/21/18 14:02> (1) DKA (diabetic ketoacidoses) Qualifiers: Diabetes mellitus type: type 1 Diabetes mellitus complication detail: without coma Qualified Code(s): E10.10 - Type 1 diabetes mellitus with ketoacidosis without coma (2) Sinusitis Qualifiers: Sinusitis location: maxillary Chronicity: acute Recurrence: recurrent Qualified Code(s): J01.01 - Acute recurrent maxillary sinusitis (4) Acute on chronic kidney failure Qualifiers: Acute renal failure type: unspecified Chronic kidney disease stage: stage 2 ( mild) Qualified Code(s): N17.9 - Acute kidney failure, unspecified; N18.2 - Chronic kidney disease, stage 2 (mild)
[2018-06-21 13:25] LABS: BUN/Creatinine Ratio 24 (6-26); Blood Urea Nitrogen 22 mg/dL (6-20); Carbon Dioxide 20 mEq/L (23-29); Chloride 109 mEq/L (98-107); Glucose 148 mg/dL (70-105); Osmolality,Calculated 288 (280-300); Potassium 3.7 mEq/L (3.5-5.1); Sodium 136 mEq/L (136-145); eGFR For Non-African Americans > 60 (> 60)
[2018-06-21] MEDS ORDERED: Insulin DETEMIR 100 UNIT/ML X5UNITS SQ ONE (14:00)
[2018-06-21] MEDS ORDERED: Insulin LISPRO 300 UNITS/3 ML VIAL SQ SCH ×3 (16:30→21:00)
--- NOTE | 2018-06-21 18:15 | Electrocardiograph Report ---
[facility] Test Date: 2018-06-21 Pat Name: 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
[2018-06-21] MEDS: Insulin LISPRO 300 UNITS/3 ML VIAL SQ SCH (18:38)
[2018-06-21] MEDS ORDERED: Gabapentin 300 MG CAPSULE PO PRN (19:44)
[2018-06-21] MEDS ORDERED: Insulin DETEMIR 100 UNIT/ML X5UNITS SQ SCH (21:00)
[2018-06-21] MEDS: Insulin DETEMIR 100 UNIT/ML X5UNITS SQ SCH (21:56)
[2018-06-22 04:17] LABS: BUN/Creatinine Ratio 15 (6-26); Blood Urea Nitrogen 13 mg/dL (6-20); Calcium 8.1 mg/dL (8.6-10.3); Carbon Dioxide 20 mEq/L (23-29); Chloride 111 mEq/L (98-107); Glucose 85 mg/dL (70-105); Osmolality,Calculated 285 (280-300); Potassium 3.7 mEq/L (3.5-5.1); Sodium 138 mEq/L (136-145); eGFR For Non-African Americans > 60 (> 60)
[2018-06-22 05:03] LABS: Basophils % 0.4 %; Eosinophils # 0.1 K/mcL (0.0-0.6); Eosinophils % 0.7 %; Hematocrit 32.7 % (35.3-44.9); Hemoglobin 11.1 g/dL (11.5-15.4); Immature Granulocytes % 0.3 % (0-4); Lymphocytes # 1.4 K/mcL (0.6-4.6); Lymphocytes % 15.1 %; Mean Corpuscular HGB Conc 33.9 g/dL (31.6-35.5); Mean Corpuscular Hemoglobin 29.4 pg (28.0-33.3); Mean Corpuscular Volume 86.7 fL (83.0-100.0); Mean Platelet Volume 9.4 fL (9.4-12.4); Monocytes # 0.7 K/mcL (0.0-1.3); Monocytes % 7.7 %; Neutrophils # 7.2 K/mcL (1.6-8.9); Platelet Count 288 K/mcL (140-400); Red Blood Count 3.77 M/mcL (3.82-4.97); Red Cell Distribution Width 12.7 % (11.5-14.5); Segmented Neutrophils % 75.8 %
[2018-06-22 07:39] VITALS: BP 129/76
[2018-06-22] MEDS: Insulin DETEMIR 100 UNIT/ML X5UNITS SQ SCH (07:59)
[2018-06-22] MEDS: Insulin LISPRO 300 UNITS/3 ML VIAL SQ SCH ×4 (08:16→12:13)
[2018-06-22] MEDS ORDERED: hydroCHLOROthiazide 25 MG TABLET PO SCH (09:00)
[2018-06-22] MEDS ORDERED: FLUoxetine 20 MG CAPSULE PO SCH (09:00)
[2018-06-22] MEDS ORDERED: amLODIPine 5 MG TABLET PO SCH (09:00)
--- NOTE | 2018-06-22 09:50 | Discharge Summary ---
<Gisela Villafuerte N - Last Filed: 06/22/18 11:07> - NOTES TO OUTPATIENT PROVIDER Notes to Outpatient Provider: Patient presented in DKA likely secondary to stress and acute URI. She had completed a course of doxycycline prior to admission and received one dose of ceftriaxone in the ED. She remained afebrile and WBC count was within normal limits on day of discharge. Date of Encounter: 06/22/18 Time of Encounter: 09:47 - Discharge Diagnosis (1) DKA (diabetic ketoacidoses) Priority: Primary Status: Acute Qualifiers: Diabetes mellitus type: type 1 Diabetes mellitus complication detail: without coma Qualified Code(s): E10.10 - Type 1 diabetes mellitus with ketoacidosis without coma (2) Sinusitis Priority: Secondary Status: Acute Qualifiers: Sinusitis location: maxillary Chronicity: acute Recurrence: recurrent Qualified Code(s): J01.01 - Acute recurrent maxillary sinusitis (3) Hx of hyperlipidemia Priority: Secondary Status: Chronic (4) Acute on chronic kidney failure Priority: Secondary Status: Resolved Qualifiers: Acute renal failure type: unspecified Chronic kidney disease stage: stage 2 (mild) Qualified Code(s): N17.9 - Acute kidney failure, unspecified; N18.2 - Chronic kidney disease, stage 2 (mild) (5) Morbid obesity with BMI of 45.0-49.9, adult Priority: Secondary Status: Chronic Hospital course: Ms. Zapata is a 38 year old female with a history of type 1 diabetes who presented to the ED stating "I am in DKA". She reports that for several days prior, she had been feeling weak and tired, and noted that her blood sugar had been trending upward. She does have a history of DKA. On the day she presented to the ED, she reported having experienced nausea, vomiting, and abdominal pain. She recently completed a course of doxycycline for an URI. She received one dose of IM ceftriaxone while in the ED due to continued sinusitis symptoms. She was admitted for treatment and started on IV insulin and fluids. She responded well to treatment, with resolution of DKA. She was transitioned to subcutaneous insulin and started on a diabetic diet, which she tolerated well. On day of discharge, patient reported feeling much better, and denied any ongoing concerns, with exception of postnasal drip and sinus congestion. As she continued to be afebrile and WBC was within normal limits, patient was advised to use OTC treatments such as throat lozenges and claritin. She was instructed to follow up with her PCP on Sunday. She voiced understanding and agreement with this plan. Discharge discussed with: patient, nurse - Time Spent with Patient Total time spent providing and/or coordinating discharge services: - Discharge Medications Home Medications: Amlodipine Besylate 10 mg PO DAILY 06/21/18 [History] Atorvastatin [Lipitor] 40 mg PO HS 06/21/18 [History] Buspirone HCl [Buspar] 10 mg PO Q12HR PRN 06/21/18 [History] Carvedilol 12.5 mg PO BID 06/21/18 [History] FLUoxetine HCl [Fluoxetine HCl] 40 mg PO DAILY 06/21/18 [History] Gabapentin [Neurontin] 300 mg PO TID PRN 06/21/18 [History] Levothyroxine Sodium [Levoxyl] 50 mcg PO 06/21/18 [History] Losartan [Cozaar] 25 mg PO DAILY 06/21/18 [History] Subcutaneous Insulin Pump [T:Slim] 1 each MC AD 06/21/18 [History] hydroCHLOROthiazide [Hydrochlorothiazide] 25 mg PO DAILY 06/21/18 [History] Allergies/Adverse Reactions: 3 Allergy/AdvReac Type Severity Reaction Status Date / Time desvenlafaxine [From Pristiq] Allergy Swelling Verified 06/21/18 14:48 duloxetine [From Cymbalta] AdvReac Suicidal Verified 06/21/18 14:48 ideations Date of admission: 06/21/18 05:16 Primary care physician: Sophia Foss CNP Discharging clinician: Gisela Villafuerte Anticipated date of discharge: 06/22/18 - Constitutional Vitals: Temp Pulse Resp BP Pulse Ox 98.0 F 73 18 129/76 96 06/22/18 07:24 06/22/18 07:24 06/22/18 07:24 06/22/18 07:24 06/22/18 07:24 Exam: * General: Pleasant adult female sleeping in bed comfortably. She rouses easily to voice. She does not appear to be in acute distress and answers questions appropriately. * HEENT: Atraumatic and normocephalic. * Cardiovascular: Regular rate and rhythm. No murmurs, rubs, or gallops. * Respiratory: CTA bilaterally * Abdomen: Soft and nontender. * Extremities: No clubbing or cyanosis. Minimal nonpitting pedal edema bilaterally. - Patient Status Disposition: Home, Self-Care Condition: Good Functional capacity at discharge: independent ambulation Overall status at discharge: patient is progressing back to baseline - Discharge Instructions Follow Up With: Sophia Foss CNP [Primary Care Provider] - 07/04/18 11:00 am (Please show up at 1045 per the office) Forms: Work/School Release Additional Instructions: Continue to drink plenty of fluids. Resume taking home medications. Monitor blood sugar closely. Follow up with your PCP on Sunday regarding this hospitalization and sinus symptoms. You make use OTC loratidine and throat lozenges as needed for symptoms of congestion. Return to the emergency department if you began feeling weak or dizzy, if you develop a fever, if your blood sugar begins to rise out of control, or if new concerns arise. You may return to work without restriction on Sunday, June 25, 2018. - Diet and Activity Activity: resume usual activities as tolerated Diet: diabetic diet <Yas Martin - Last Filed: 06/22/18 12:45> Date of Encounter: 06/22/18 Time of Encounter: : - Discharge Diagnosis (1) DKA (diabetic ketoacidoses) Status: Acute Qualifiers: Diabetes mellitus type: type 1 Diabetes mellitus complication detail: without coma Qualified Code(s): E10.10 - Type 1 diabetes mellitus with ketoacidosis without coma (2) Sinusitis Status: Acute Qualifiers: Sinusitis location: maxillary Chronicity: acute Recurrence: recurrent Qualified Code(s): J01.01 - Acute recurrent maxillary sinusitis (3) Hx of hyperlipidemia Status: Chronic (4) Acute on chronic kidney failure Status: Resolved Qualifiers: Acute renal failure type: unspecified Chronic kidney disease stage: stage 2 (mild) Qualified Code(s): N17.9 - Acute kidney failure, unspecified; N18.2 - Chronic kidney disease, stage 2 (mild) (5) Morbid obesity with BMI of 45.0-49.9, adult Status: Chronic Hospital course: Ms. Zapata is a 38 year old female - Time Spent with Patient Total time spent providing and/or coordinating discharge services: Date of admission: 06/21/18 05:16 Primary care physician: Sophia Foss CNP - Constitutional Vitals: Temp Pulse Resp BP Pulse Ox 98.0 F 73 18 129/76 96 06/22/18 07:24 06/22/18 07:24 06/22/18 07:24 06/22/18 07:24 06/22/18 07:24 - Attending Attestation I saw evaluated and examined this patient and my medical decision-making was reviewed with the Resident Physician, Gisela Villafuerte. I agree with the documented findings, disposition and treatment plan as described except to any changes set forth below. We independently had [id number] contact with the patient. 38-year-old female patient with history of type 1 diabetes mellitus on insulin pump presented to the ER with complaints of generalized weakness, sinus pressure , nasal congestion and was diagnosed with diabetic ketoacidosis. She was treated with IV insulin drip, IV fluids per DKA protocol. Her DKA resolved yesterday afternoon and since then her blood sugars have been controlled with subcutaneous insulin. At this time patient is stable to be discharged home on her insulin pump. 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 Patient does have symptoms of sinusitis and had previously completed antibiotic course of doxycycline. No further indication for antibiotics at this time. Recommend symptomatic treatment.
== END 2018-06-22 13:23 | disposition home or self-care (01) | DRG 420 ==
LOC: 2NNU 22:56 → EMEROOARM 22:56 → 2NNU 06-21 03:35 → SUATTDRO 06-21 05:16
PROVIDERS: ADMIT Pediatrics; ATTEND Internal Medicine

== ENCOUNTER 2019-05-12 04:06 | Observation (INO) ==
--- NOTE | 2019-05-12 04:18 | Emergency Department Note ---
Disposition Clinical Impression: DKA (diabetic ketoacidoses) Qualifiers: Diabetes mellitus type: type 1 Diabetes mellitus complication detail: without coma Qualified Code(s): E10.10 - Type 1 diabetes mellitus with ketoacidosis without coma Disposition: Admitted As Inpatient Condition: Good Instructions: Diabetic Ketoacidosis (ED) Referrals: Sophia Foss CNP [Primary Care Provider] - Time of Disposition: 06:53 General Adult HPI - General Stated complaint: High Blood Sugar Time Seen by Provider: 05/12/19 04:11 Source: patient Mode of arrival: ambulatory Limitations: no limitations Nursing Notes Reviewed: Yes Vital Signs Reviewed: Yes - History of Present Illness HPI Narrative: Patient is a 38-year-old female with a past medical history of type 1 diabetes, hypertension, pancreatitis who is on an insulin pump who is presenting with elevated blood glucose. Patient says for the past 2 days she has been having nausea and vomiting. She denies having any chest pain, shortness of breath, abdominal pain. However she mentions that she has a decreased appetite and has had difficulty keeping down fluids. Patient denies having any recent illnesses. Does mention that she is recently changed over to working night shifts as a possible stressor. Patient is on an insulin pump and is not using any oral medications since she is type I. States that she has not been in DKA since she has been on the insulin pump. Denies any fevers, chills. Denies any dysuria, constipation, diarrhea. - Related Data Home Medications Medication Instructions Recorded Confirmed Amlodipine Besylate 10 mg PO DAILY 06/21/18 05/12/19 Atorvastatin [Lipitor] 40 mg PO HS 06/21/18 05/12/19 Carvedilol 12.5 mg PO BID 06/21/18 05/12/19 Levothyroxine Sodium [Levoxyl] 50 mcg PO DAILY 06/21/18 05/12/19 Losartan [Cozaar] 25 mg PO DAILY 06/21/18 05/12/19 Subcutaneous Insulin Pump [T:Slim] 1 each MC AD 06/21/18 05/12/19 hydroCHLOROthiazide 25 mg PO DAILY 06/21/18 05/12/19 [Hydrochlorothiazide] Previous Rx's Medication Instructions Recorded Ibuprofen [Motrin] 600 mg PO Q6HR PRN #20 tab 10/11/18 Ondansetron ODT [Zofran ODT] 4 mg SL Q6HR #8 tab.rapdis 05/01/19 Allergies Allergy/AdvReac Type Severity Reaction Status Date / Time desvenlafaxine [From Pristiq] Allergy Swelling Verified 05/12/19 05:08 duloxetine [From Cymbalta] AdvReac Suicidal Verified 05/12/19 05:08 ideations All systems ED: reviewed and negative except as stated. Review of Systems: As Per HPI Constitutional: Denies: fever, chills, weakness Eyes: Denies: eye pain, eye discharge ENT ED: Denies: ear pain, throat pain, dental pain Cardiovascular: Denies: chest pain, palpitations, dyspnea on exertion Respiratory: Denies: cough, dyspnea, wheezes Gastrointestinal: Reports: nausea, vomiting. Denies: abdominal pain Genitourinary: Denies: urgency, dysuria, frequency Musculoskeletal: Denies: back pain, neck pain, joint swelling Integumentary: Denies: rash, abrasion, lesions Neurological: Denies: headache, weakness, numbness Psychiatric: Denies: anxiety, depression, suicidal thoughts Endocrine: Denies: fatigue, heat or cold intolerance, polydipsia Past Medical History - Past Medical History Attestation: Yes The following information was validated with the patient. Source: patient Medical history: Reports: diabetes, hypertension, other Surgical history: Reports: Psychiatric history: Reports: anxiety [employer] history: Reports: bilateral tubal ligation - Social History Smoking Status: Never smoker Smokeless Tobacco Status: No Alcohol use: Reports: none Drug use: Reports: none Physical Exam GEN: well-appearing, no acute distress, conversant. HEENT: NC, AT. MMM. EOMI, clear conjunctiva, oropharynx clear. NECK: Supple without lymphadenopathy. No stiffness or restricted ROM. HEART: Normal rate and regular rhythm, normal S1/S1, no m/r/g LUNGS: CTAB, moving air well. No crackles or wheezes are heard. ABDOMEN: Soft, nontender, nondistended with good bowel sounds heard. BACK: No CVAT, no obvious deformity. EXTREMITIES: Without cyanosis, clubbing or edema. NEUROLOGICAL: Grossly nonfocal. Alert and oriented, moving all 4 extremities. CN not formally tested but appear grossly intact. Observed to ambulate with normal gait. Skin: Warm and dry without any rash. Course Course Narrative: Patient was seen and examined. Vital signs are stable and within normal limits. Physical exam was unremarkable. Labs are ordered including CBC, CMP, lipase, beta hydroxybutyrate, urinalysis, VBG. Patient was given Zofran for nausea. Vital Signs Temperature 97.6 F 05/12/19 05:03 Pulse Rate 118 05/12/19 05:03 Respiratory Rate 18 05/12/19 05:03 Blood Pressure 142/83 05/12/19 05:03 O2 Sat by Pulse Oximetry 99 05/12/19 05:03 Temperature 97.6 F 05/12/19 05:03 Pulse Rate 109 05/12/19 07:07 Respiratory Rate 16 05/12/19 07:07 Blood Pressure 152/101 05/12/19 07:07 O2 Sat by Pulse Oximetry 99 05/12/19 07:07 Oxygen Delivery Oxygen Delivery Room Air Medical Decision Making - MDM Narrative Medical decision making narrative: Patient is a 38-year-old female with a history of type 1 diabetes is presenting with high blood sugars. Initial blood glucose was over 600. Labs to follow remarkable for a pH of 7.3, significant anion gap, elevated beta hydroxybutyrate, urine ketones likely indicating DKA versus HHS. Most likely DKA given history of insulin-dependent diabetes. Patient is currently asymptomatic at this time although she is endorsing some nausea and vomiting. Zofran was given for symptom control. Patient was given 2 L of normal saline and started on an insulin drip. She did have a white count of 15. Patient will be admitted to medicine for further management of DKA. At this time patient is resting comfortably with nausea well controlled. Patient was accepted by the hospitalist for admission. - Medical Records Medical records reviewed: Yes I reviewed the patient's medical records. - Lab Data Lab results reviewed: Yes I reviewed the patient's lab results. Result diagrams: 05/12/19 05:38 05/12/19 05:38 Lab Results 05/12/19 05/12/19 05/12/19 Range/Units 04:12 04:13 05:06 WBC (4.3-11.1) K/mcL RBC (3.82-4.97) M/mcL Hgb (11.5-15.4) g/dL Hct (35.3-44.9) % MCV (83.0-100.0) fL MCH (28.0-33.3) pg MCHC (31.6-35.5) g/dL RDW (11.5-14.5) % Plt Count (140-400) K/mcL MPV (9.4-12.4) fL Immature Gran % (0-4) % Seg Neutrophils % % Lymphocytes % % Monocytes % % Eosinophils % % Basophils % % Neutrophils # (1.6-8.9) K/mcL Lymphocytes # (0.6-4.6) K/mcL Monocytes # (0.0-1.3) K/mcL Eosinophils # (0.0-0.6) K/mcL Basophils # (0.0-0.2) K/mcL VBG pH (7.32-7.42) pH Units VBG pCO2 (41-51) mmHg VBG pO2 (25-50) mmHg VBG HCO3 (21-27) mEq/L Sodium (136-145) mEq/L Potassium (3.5-5.1) mEq/L Chloride (98-107) mEq/L Carbon Dioxide (23-29) mEq/L BUN (6-20) mg/dL Creatinine (0.60-1.20) mg/dL Est GFR ( Amer) (> 60) Est GFR (Non-Af Amer) (> 60) BUN/Creatinine Ratio (6-26) Glucose (70-105) mg/dL POC Glucose > 600 H* > 600 H* (70-99) mg/dL Calculated Osmolality (280-300) Calcium (8.6-10.3) mg/dL Total Bilirubin (0.3-1.0) mg/dL AST (13-39) Units/L ALT (7-52) Units/L Alkaline Phosphatase (34-104) Units/L Serum Total Protein (6.4-8.9) g/dL Albumin (3.5-5.7) g/dL Globulin (2.4-3.5) g/dL Albumin/Globulin Ratio (1.1-2.2) Lipase (11-82) Units/L Beta-Hydroxybutyric Acd (0.02-0.27) mmol/L Urine Color Yellow (Yellow) Urine Clarity Clear (Clear) Urine pH 6.0 (5.0-8.0) pH Units Ur Specific [place] > 1.030 H (1.010-1.025) Urine Protein 100 H (Neg-Trace) mg/dL Urine Glucose (UA) >=1000 H (Normal) mg/dL Urine Ketones 40 H (Negative) mg/dL Urine Blood Negative (Negative) Urine Nitrite Negative (Negative) Urine Bilirubin Negative (Negative) Urine Urobilinogen Normal (Normal) mg/dL Ur Leukocyte Esterase Negative (Negative) Urine Microscopic RBC 0-3 (0-3) per hpf Urine Microscopic WBC 0-3 (0-3) per hpf Ur Squamous Epith Cells Many H (None-Few) per lpf Urine Bacteria None Seen (None-Few) per hpf Hyaline Casts None Seen (None-Few) per lpf Urine Test (Negative) 05/12/19 05/12/19 05/12/19 Range/Units 05:06 05:38 05:38 WBC 15.5 H (4.3-11.1) K/mcL RBC 4.68 (3.82-4.97) M/mcL Hgb 13.5 (11.5-15.4) g/dL Hct 41.5 (35.3-44.9) % MCV 88.7 (83.0-100.0) fL MCH 28.8 (28.0-33.3) pg MCHC 32.5 (31.6-35.5) g/dL RDW 12.4 (11.5-14.5) % Plt Count 350 (140-400) K/mcL MPV 9.7 (9.4-12.4) fL Immature Gran % 0.6 (0-4) % Seg Neutrophils % 89.0 % Lymphocytes % 5.9 % Monocytes % 4.2 % Eosinophils % 0.0 % Basophils % 0.3 % Neutrophils # 13.8 H (1.6-8.9) K/mcL Lymphocytes # 0.9 (0.6-4.6) K/mcL Monocytes # 0.7 (0.0-1.3) K/mcL Eosinophils # 0.0 (0.0-0.6) K/mcL Basophils # 0.1 (0.0-0.2) K/mcL VBG pH (7.32-7.42) pH Units VBG pCO2 (41-51) mmHg VBG pO2 (25-50) mmHg VBG HCO3 (21-27) mEq/L Sodium 129 L (136-145) mEq/L Potassium 4.5 (3.5-5.1) mEq/L Chloride 93 L (98-107) mEq/L Carbon Dioxide 19 L (23-29) mEq/L BUN 24 H (6-20) mg/dL Creatinine 1.77 H (0.60-1.20) mg/dL Est GFR ( Amer) 39 L (> 60) Est GFR (Non-Af Amer) 32 L (> 60) BUN/Creatinine Ratio 14 (6-26) Glucose 750 H* (70-105) mg/dL POC Glucose (70-99) mg/dL Calculated Osmolality 308 H (280-300) Calcium 9.9 (8.6-10.3) mg/dL Total Bilirubin 1.0 (0.3-1.0) mg/dL AST 15 (13-39) Units/L ALT 18 (7-52) Units/L Alkaline Phosphatase 84 (34-104) Units/L Serum Total Protein 7.5 (6.4-8.9) g/dL Albumin 4.2 (3.5-5.7) g/dL Globulin 3.3 (2.4-3.5) g/dL Albumin/Globulin Ratio 1.3 (1.1-2.2) Lipase 4 L (11-82) Units/L Beta-Hydroxybutyric Acd (0.02-0.27) mmol/L Urine Color (Yellow) Urine Clarity (Clear) Urine pH (5.0-8.0) pH Units Ur Specific [place] (1.010-1.025) Urine Protein (Neg-Trace) mg/dL Urine Glucose (UA) (Normal) mg/dL Urine Ketones (Negative) mg/dL Urine Blood (Negative) Urine Nitrite (Negative) Urine Bilirubin (Negative) Urine Urobilinogen (Normal) mg/dL Ur Leukocyte Esterase (Negative) Urine Microscopic RBC (0-3) per hpf Urine Microscopic WBC (0-3) per hpf Ur Squamous Epith Cells (None-Few) per lpf Urine Bacteria (None-Few) per hpf Hyaline Casts (None-Few) per lpf Urine Test Negative (Negative) 05/12/19 05/12/19 Range/Units 05:38 06:01 WBC (4.3-11.1) K/mcL RBC (3.82-4.97) M/mcL Hgb (11.5-15.4) g/dL Hct (35.3-44.9) % MCV (83.0-100.0) fL MCH (28.0-33.3) pg MCHC (31.6-35.5) g/dL RDW (11.5-14.5) % Plt Count (140-400) K/mcL MPV (9.4-12.4) fL Immature Gran % (0-4) % Seg Neutrophils % % Lymphocytes % % Monocytes % % Eosinophils % % Basophils % % Neutrophils # (1.6-8.9) K/mcL Lymphocytes # (0.6-4.6) K/mcL Monocytes # (0.0-1.3) K/mcL Eosinophils # (0.0-0.6) K/mcL Basophils # (0.0-0.2) K/mcL VBG pH 7.33 (7.32-7.42) pH Units VBG pCO2 38 L (41-51) mmHg VBG pO2 46 (25-50) mmHg VBG HCO3 20 L (21-27) mEq/L Sodium (136-145) mEq/L Potassium (3.5-5.1) mEq/L Chloride (98-107) mEq/L Carbon Dioxide (23-29) mEq/L BUN (6-20) mg/dL Creatinine (0.60-1.20) mg/dL Est GFR ( Amer) (> 60) Est GFR (Non-Af Amer) (> 60) BUN/Creatinine Ratio (6-26) Glucose (70-105) mg/dL POC Glucose (70-99) mg/dL Calculated Osmolality (280-300) Calcium (8.6-10.3) mg/dL Total Bilirubin (0.3-1.0) mg/dL AST (13-39) Units/L ALT (7-52) Units/L Alkaline Phosphatase (34-104) Units/L Serum Total Protein (6.4-8.9) g/dL Albumin (3.5-5.7) g/dL Globulin (2.4-3.5) g/dL Albumin/Globulin Ratio (1.1-2.2) Lipase (11-82) Units/L Beta-Hydroxybutyric Acd > 2.00 H (0.02-0.27) mmol/L Urine Color (Yellow) Urine Clarity (Clear) Urine pH (5.0-8.0) pH Units Ur Specific [place] (1.010-1.025) Urine Protein (Neg-Trace) mg/dL Urine Glucose (UA) (Normal) mg/dL Urine Ketones (Negative) mg/dL Urine Blood (Negative) Urine Nitrite (Negative) Urine Bilirubin (Negative) Urine Urobilinogen (Normal) mg/dL Ur Leukocyte Esterase (Negative) Urine Microscopic RBC (0-3) per hpf Urine Microscopic WBC (0-3) per hpf Ur Squamous Epith Cells (None-Few) per lpf Urine Bacteria (None-Few) per hpf Hyaline Casts (None-Few) per lpf Urine Test (Negative) Critical Care Time Critical Care Time: Yes Total Critical Care Time: 30 Attestation: The high probability of a clinically significant, sudden or life threatening deterioration of the [] system(s) required my full and direct attention, intervention and personal management. The aggregate critical care time was [] minutes. This time is in addition to time spent performing reported procedures but includes the following: [] Data Review and interpretation [] Patient assessment and monitoring of vital signs [] Documentation [] Medication orders and management Attestation Statement - Attestation Attestation: I reviewed the residents documentation and agree with the residents assessment and plan of care. I have personally had face to face time with the patient. (Brief History, Brief Exam, and MDM) I personally supervised and was present for the chávez/critical portions of the following procedures completed by the resident: (add procedures performed here). [id number] time provided Patient arrives complaining of hyperglycemia. She has known history of type 1 diabetes with an implantable insulin pump. She states several days ago her blood sugars were low and labile. She appears in no acute distress on exam. Triage note and vitals reviewed by me
[2019-05-12] MEDS ORDERED: Ondansetron 4 MG/2 ML VIAL IVP ONE (04:54)
[2019-05-12 05:10] LABS: Bilirubin,Urine Negative (Negative); Blood,Urine Negative (Negative); Clarity,Urine Clear (Clear); Color,Urine Yellow (Yellow); Glucose,Urine (UA) >=1000 mg/dL (Normal); Ketones,Urine 40 mg/dL (Negative); Leukocyte Esterase,Urine Negative (Negative); Nitrite,Urine Negative (Negative); Protein,Urine 100 mg/dL (Neg-Trace); Specific Gravity,Urine > 1.030 (1.010-1.025); Urobilinogen,Urine Normal (Normal)
[2019-05-12 05:13] LABS: Bacteria,Urine None Seen per hpf (None-Few); Hyaline Casts,Urine None Seen per lpf (None-Few); RBC,Urine 0-3 per hpf (0-3); Squamous Epithelial Cell,Urine Many per lpf (None-Few); WBC,Urine 0-3 per hpf (0-3)
[2019-05-12 06:03] LABS: VBG HCO3 20 mEq/L (21-27); VBG PCO2 38 mmHg (41-51); VBG PH 7.33 pH Units (7.32-7.42); VBG PO2 46 mmHg (25-50)
[2019-05-12 06:07] LABS: Basophils # 0.1 K/mcL (0.0-0.2); Basophils % 0.3 %; Hematocrit 41.5 % (35.3-44.9); Hemoglobin 13.5 g/dL (11.5-15.4); Immature Granulocytes % 0.6 % (0-4); Lymphocytes # 0.9 K/mcL (0.6-4.6); Lymphocytes % 5.9 %; Mean Corpuscular HGB Conc 32.5 g/dL (31.6-35.5); Mean Corpuscular Hemoglobin 28.8 pg (28.0-33.3); Mean Corpuscular Volume 88.7 fL (83.0-100.0); Mean Platelet Volume 9.7 fL (9.4-12.4); Monocytes # 0.7 K/mcL (0.0-1.3); Monocytes % 4.2 %; Neutrophils # 13.8 K/mcL (1.6-8.9); Platelet Count 350 K/mcL (140-400); Red Blood Count 4.68 M/mcL (3.82-4.97); Red Cell Distribution Width 12.4 % (11.5-14.5); White Blood Count 15.5 K/mcL (4.3-11.1)
[2019-05-12 06:26] LABS: Albumin 4.2 g/dL (3.5-5.7); Albumin/Globulin Ratio 1.3 (1.1-2.2); Calcium 9.9 mg/dL (8.6-10.3); Globulin 3.3 g/dL (2.4-3.5); Potassium 4.5 mEq/L (3.5-5.1); Total Protein 7.5 g/dL (6.4-8.9)
[2019-05-12] MEDS ORDERED: 0.9 % Sodium Chloride 1,000 ML IVC STA (06:27)
[2019-05-12] MEDS ORDERED: *HR* Dextrose 50 % in Water (Syg) 50 ML SYRINGE IVP PRN ×3 (06:27→13:41)
[2019-05-12] MEDS ORDERED: Insulin Human Regular 100 UNIT in 0.9 % Sodium Chloride 100 ML IVC SCH ×2 (06:30→08:15)
[2019-05-12] MEDS ORDERED: Naloxone 0.4 MG/ML INJ IVP PRN (07:19)
[2019-05-12] MEDS ORDERED: traMADol 50 MG TABLET PO PRN (07:19)
[2019-05-12] MEDS ORDERED: Mag Hydrox/Al Hydrox/Simeth 30 ML UDC PO PRN (07:19)
[2019-05-12] MEDS ORDERED: Ondansetron 4 MG/2 ML VIAL IVP PRN (07:19)
[2019-05-12] MEDS ORDERED: Acetaminophen 325 MG TABLET PO PRN (07:19)
[2019-05-12] MEDS ORDERED: *HR* Promethazine 25 MG/ML VIAL IVP PRN (07:19)
[2019-05-12] MEDS ORDERED: MOM Conc 10 ML UD.LIQ PO PRN (07:19)
[2019-05-12] MEDS ORDERED: Insulin Regular, Human 100 UNIT/ML IV PRN (07:21)
--- NOTE | 2019-05-12 07:27 | Internal Med History&Physical ---
Date of Encounter: 05/12/19 Time of Encounter: 07:25 Internal Medicine - H&P: HPI Admitted From: Home Plans for Post Hospital Care: Home History of present illness: Patient is a 38-year-old female with a past medical history of type 1 diabetes, hypertension, pancreatitis who is on an insulin pump who is presenting with elevated blood glucose. Patient says for the past 2 days she has been having nausea and vomiting. She denies having any chest pain, shortness of breath, abdominal pain. However she mentions that she has a decreased appetite and has had difficulty keeping down fluids. Patient denies having any recent illnesses. Does mention that she is recently changed over to working night shifts as a possible stressor. Patient is on an insulin pump and is not using any oral medications since she is type I. States that she has not been in DKA since she has been on the insulin pump. Denies any fevers, chills. Denies any dysuria, constipation, diarrhea. In the ED, patient's vital signs were stable, labs is consistent for DKA. She received IV insulin bolus followed by insulin drip as well as IV fluid. She will be admitted for further evaluation and management. CODE STATUS will be for code. Past Med Surg Social Fam HX - Past Medical History Medical history: diabetes, hypertension, renal disease, other Additional medical history: Stage 2 kidney failure Psychiatric history: no psych history - Past Surgical History Surgical History: Additional surgical history: tubes tied. knee surgery - Social History Smoking Status: Never smoker Smokeless Tobacco Status: No Alcohol use: none Drug use: none - Family History Mother Hx Family Cardiac Disorders: Yes (Hypertension) Father Hx Family Cardiac Disorders: Yes Internal Medicine - H&P: Meds Amlodipine Besylate 10 mg PO DAILY 06/21/18 [History] Atorvastatin [Lipitor] 40 mg PO HS 06/21/18 [History] Carvedilol 12.5 mg PO BID 06/21/18 [History] Levothyroxine Sodium [Levoxyl] 50 mcg PO DAILY 06/21/18 [History] Losartan [Cozaar] 25 mg PO DAILY 06/21/18 [History] Subcutaneous Insulin Pump [T:Slim] 1 each MC AD 06/21/18 [History] hydroCHLOROthiazide [Hydrochlorothiazide] 25 mg PO DAILY 06/21/18 [History] Ibuprofen [Motrin] 600 mg PO Q6HR PRN #20 tab 10/11/18 [Rx] Ondansetron ODT [Zofran ODT] 4 mg SL Q6HR #8 tab.rapdis 05/01/19 [Rx] Allergy/AdvReac Type Severity Reaction Status Date / Time desvenlafaxine [From Pristiq] Allergy Swelling Verified 05/12/19 05:08 duloxetine [From Cymbalta] AdvReac Suicidal Verified 05/12/19 05:08 ideations All Systems PM: A 10-system review of systems was performed and is negative for pertinent findings except as documented above in the HPI. Review of systems: REVIEW OF SYSTEMS: CONSTITUTIONAL: No weight loss, fever, chills, weakness or fatigue. HEENT: Eyes: No visual loss, blurred vision, double vision or yellow sclerae. Ears, Nose, Throat: No hearing loss, sneezing, congestion, runny nose or sore throat. SKIN: No rash or itching. CARDIOVASCULAR: No chest pain, chest pressure or chest discomfort. No palpitations or edema. RESPIRATORY: No shortness of breath, cough or sputum. GASTROINTESTINAL: see HPI. GENITOURINARY: No dysuria, urgency, or frequency. NEUROLOGICAL: No headache, dizziness, syncope, paralysis, ataxia, numbness or tingling in the extremities. No change in bowel or bladder control. MUSCULOSKELETAL: No muscle, back pain, joint pain or stiffness. HEMATOLOGIC: No anemia, bleeding or bruising. LYMPHATICS: No enlarged nodes. No history of splenectomy. PSYCHIATRIC: No history of depression or anxiety. ENDOCRINOLOGIC: No reports of sweating, cold or heat intolerance. No polyuria or polydipsia. - Constitutional Vitals: Temp Pulse Resp BP Pulse Ox 97.6 F 109 16 152/101 99 05/12/19 05:03 05/12/19 07:07 05/12/19 07:07 05/12/19 07:07 05/12/19 07:07 General appearance: Present: A&O X 3 Exam: PHYSICAL EXAMINATION: GENERAL APPEARANCE: The patient is alert, oriented and in no acute distress. HEENT: Head is normocephalic. The sinuses are nontender. Pupils are equal and reactive. The nares are patent. Oropharynx clear without lesions. NECK: Supple without lymphadenopathy. HEART: Regular rate and rhythm. LUNGS: No crackles or wheezes are heard. ABDOMEN: Soft, nontender, nondistended with good bowel sounds heard. Inguinal area is normal. EXTREMITIES: Without cyanosis, clubbing or edema. NEUROLOGICAL: Gross nonfocal. SKIN: Warm and dry without any rash. Internal Med - H&P Results - Labs CBC & Chem 7: 05/12/19 05:38 05/12/19 05:38 Labs: Short CBC 05/12/19 Range/Units 05:38 WBC 15.5 H (4.3-11.1) K/mcL Hgb 13.5 (11.5-15.4) g/dL Hct 41.5 (35.3-44.9) % Plt Count 350 (140-400) K/mcL Neutrophils # 13.8 H (1.6-8.9) K/mcL BMP 05/12/19 05:38 Sodium 129 L Potassium 4.5 Chloride 93 L Carbon Dioxide 19 L BUN 24 H Creatinine 1.77 H Glucose 750 H* Calcium 9.9 Liver Function 05/12/19 Range/Units 05:38 Total Bilirubin 1.0 (0.3-1.0) mg/dL AST 15 (13-39) Units/L ALT 18 (7-52) Units/L Alkaline Phosphatase 84 (34-104) Units/L Albumin 4.2 (3.5-5.7) g/dL Urine 05/12/19 Range/Units 05:06 Urine Color Yellow (Yellow) Urine Clarity Clear (Clear) Urine pH 6.0 (5.0-8.0) pH Units Ur Specific [place] > 1.030 H (1.010-1.025) Urine Protein 100 H (Neg-Trace) mg/dL Urine Glucose (UA) >=1000 H (Normal) mg/dL - ABG Interpretation ABG results: 05/12/19 06:01 VBG pH 7.33 VBG pCO2 38 L VBG pO2 46 VBG HCO3 20 L - Assessment and Plan (1) DKA (diabetic ketoacidoses) Current Visit: Yes Status: Acute Assessment and plan: Symptoms and her lab results are consistent with DKA, this is most likely triggered by recent GI symptoms, probably acute gastroenteritis. No obvious signs of infection. Received IV fluid, insulin GTT started the ED. We will continue IV fluid as well as insulin drip. Will adjust IV fluids type, closely monitoring liliana ctrolytes, closely monitoring blood sugar and adjust the insulin rate. Keep patient nothing by mouth. Once anion gap closed, may consider started patient on clear liquid diet, may consider resume home insulin regimen. Qualifiers: Diabetes mellitus type: type 1 Diabetes mellitus complication detail: without coma Qualified Code(s): E10.10 - Type 1 diabetes mellitus with ketoacidosis without coma (2) Insulin dependent diabetes mellitus Current Visit: No Status: Chronic Assessment and plan: Management same as above. (3) History of hypothyroidism Current Visit: No Status: Chronic Assessment and plan: Resume home medications. (4) Hx of hyperlipidemia Current Visit: No Status: Chronic Assessment and plan: Resume home medications. (5) Acute on chronic kidney failure Current Visit: Yes Status: Resolved Assessment and plan: Creatinine currently above baseline, continue IV fluid, continue monitoring renal function. Qualifiers: Acute renal failure type: unspecified Chronic kidney disease stage: stage 4 (severe) Qualified Code(s): N17.9 - Acute kidney failure, unspecified; N18.4 - Chronic kidney disease, stage 4 (severe) (6) Morbid obesity with BMI of 45.0-49.9, adult Current Visit: No Status: Chronic Assessment and plan: Weight control discussed with patient. (7) Hypertension Current Visit: No Status: Chronic Assessment and plan: BP controlled, hold losartan and HCTZ due to acute MARCELLA. Continue other home medication for blood pressure control. Qualifiers: Hypertension type: unspecified Qualified Code(s): I10 - Essential (primary) hypertension (8) DVT prophylaxis Current Visit: Yes Status: Acute Assessment and plan: Heparin subcutaneous - Time Spent With Patient Total time spent is greater than 50% in coordination of care (as documented) at patient's floor/unit and/or counseling patient: Greater than 35 minutes
[2019-05-12] MEDS ORDERED: D5% in 0.45% NACL w KCl 20 MEQ/1,000 ML MLS IVC PRN (08:08)
[2019-05-12] MEDS ORDERED: 0.9 % Sodium Chloride w KCl 20 MEQ/1,000 ML MLS IVC ONE (08:33)
[2019-05-12] MEDS: 0.9 % Sodium Chloride w KCl 20 MEQ/1,000 ML MLS IVC SCH ×2 (08:46→10:55)
[2019-05-12] MEDS: amLODIPine 5 MG TABLET PO SCH (09:09)
[2019-05-12 09:14] LABS: VBG HCO3 21 mEq/L (21-27); VBG PCO2 32 mmHg (41-51); VBG PH 7.44 pH Units (7.32-7.42); VBG PO2 191 mmHg (25-50)
[2019-05-12 09:30] LABS: Calcium 9.7 mg/dL (8.6-10.3); Potassium 3.6 mEq/L (3.5-5.1)
[2019-05-12 12:47] LABS: Calcium 9.3 mg/dL (8.6-10.3); Potassium 4.2 mEq/L (3.5-5.1)
[2019-05-12 13:41] LABS: VBG HCO3 25 mEq/L (21-27); VBG PCO2 43 mmHg (41-51); VBG PH 7.37 pH Units (7.32-7.42); VBG PO2 125 mmHg (25-50)
[2019-05-12] MEDS ORDERED: D5% in Water 1,000 ML IVC PRN (13:41)
[2019-05-12] MEDS ORDERED: Dextrose Gel 15 GM/37.5 ML TUBE PO PRN ×2 (13:41)
[2019-05-12] MEDS: Insulin DETEMIR 100 UNIT/ML X5UNITS SQ SCH ×2 (14:03→21:25)
[2019-05-12] MEDS: Insulin LISPRO 300 UNITS/3 ML VIAL SQ SCH (17:33)
[2019-05-12] MEDS ORDERED: Insulin LISPRO 300 UNITS/3 ML VIAL SQ SCH (21:00)
[2019-05-13 06:26] LABS: Basophils # 0.1 K/mcL (0.0-0.2); Basophils % 0.8 %; Eosinophils # 0.1 K/mcL (0.0-0.6); Eosinophils % 1.5 %; Hematocrit 34.1 % (35.3-44.9); Immature Granulocytes % 0.3 % (0-4); Lymphocytes # 2.4 K/mcL (0.6-4.6); Lymphocytes % 38.2 %; Mean Corpuscular HGB Conc 32.8 g/dL (31.6-35.5); Mean Corpuscular Hemoglobin 29.2 pg (28.0-33.3); Mean Corpuscular Volume 88.8 fL (83.0-100.0); Mean Platelet Volume 9.4 fL (9.4-12.4); Monocytes # 0.4 K/mcL (0.0-1.3); Monocytes % 6.8 %; Platelet Count 278 K/mcL (140-400); Red Blood Count 3.84 M/mcL (3.82-4.97); Red Cell Distribution Width 12.4 % (11.5-14.5); Segmented Neutrophils % 52.4 %
[2019-05-13 06:30] LABS: Hemoglobin 11.2 g/dL (11.5-15.4); Neutrophils # 3.3 K/mcL (1.6-8.9); White Blood Count 6.2 K/mcL (4.3-11.1)
[2019-05-13 06:46] LABS: BUN/Creatinine Ratio 15 (6-26); Blood Urea Nitrogen 12 mg/dL (6-20); Calcium 8.3 mg/dL (8.6-10.3); Carbon Dioxide 25 mEq/L (23-29); Chloride 104 mEq/L (98-107); Glucose 185 mg/dL (70-105); Osmolality,Calculated 293 (280-300); Potassium 3.6 mEq/L (3.5-5.1); Sodium 139 mEq/L (136-145); eGFR For African Americans > 60 (> 60); eGFR For Non-African Americans > 60 (> 60)
[2019-05-13] MEDS: amLODIPine 5 MG TABLET PO SCH (08:28)
[2019-05-13] MEDS: Insulin LISPRO 300 UNITS/3 ML VIAL SQ SCH ×2 (08:29→12:42)
[2019-05-13] MEDS: Insulin DETEMIR 100 UNIT/ML X5UNITS SQ SCH (08:30)
[2019-05-13 12:40] VITALS: BP 141/90
--- NOTE | 2019-05-13 16:03 | Discharge Summary ---
- NOTES TO OUTPATIENT PROVIDER Notes to Outpatient Provider: Presneted with DKA, currently dschrging on basl bolus regimen, 10 unit sof lsirpo TID wth meals adn detemir 15 U BID. Needs outpatient adjsutment as well as decision regarding the insulin pump Date of Encounter: 05/13/19 Time of Encounter: 09:00 - Discharge Diagnosis (1) DKA (diabetic ketoacidoses) Priority: Primary Status: Acute Qualifiers: Diabetes mellitus type: type 1 Diabetes mellitus complication detail: without coma Qualified Code(s): E10.10 - Type 1 diabetes mellitus with ketoacidosis without coma (2) History of hypothyroidism Priority: Secondary Status: Chronic (3) Hx of hyperlipidemia Priority: Secondary Status: Chronic (4) Acute on chronic kidney failure Priority: Secondary Status: Resolved Qualifiers: Acute renal failure type: unspecified Chronic kidney disease stage: stage 4 (severe) Qualified Code(s): N17.9 - Acute kidney failure, unspecified; N18.4 - Chronic kidney disease, stage 4 (severe) (5) Morbid obesity with BMI of 45.0-49.9, adult Priority: Secondary Status: Chronic (6) Insulin dependent diabetes mellitus Priority: Secondary Status: Chronic (7) Hypertension Priority: Secondary Status: Chronic Qualifiers: Hypertension type: unspecified Qualified Code(s): I10 - Essential (primary) hypertension (8) DVT prophylaxis Priority: Secondary Status: Acute Hospital course: Ms. Zapata is a 38 year old female with a past medical is significant for type 1 diabetes mellitus, hypertension, currently on insulin pump for diabetes mellitus, presented to the emergency department with the complaints of nausea, vomiting, elevated blood sugar levels. Patient was found to be in diabetic acidosis. She was started on insulin drip, transitioned to subcutaneous insulin. Etiology is not clear for diabetic acidosis. Seems like malfunctioning of insulin pump. 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 Until then, patient is recommended to use basal bolus regimen. She is taking 60-70 units of insulin daily at home currently with her insulin pump. She will be discharged on insulin Lantus 15 units twice a day for 3 days, insulin lispro 10 units 3 times a day with meals for 3 days until she sees her laundrette owner. Medications sent to the pharmacy. Patient is hemodynamically stable. Patient advised to eat diabetic diet. - Time Spent with Patient Total time spent providing and/or coordinating discharge services: 35 minutes - Discharge Medications Prescriptions: New Insulin LISPRO [Admelog] 10 unit SQ TIDAC 5 Days #1 vial Insulin Glargine,Hum.rec.anlog [Basaglar Kwikpen U-100] 15 unit SQ BID 5 Days #10 insuln.pen Continued Atorvastatin [Lipitor] 40 mg PO HS Amlodipine Besylate 10 mg PO DAILY hydroCHLOROthiazide [Hydrochlorothiazide] 25 mg PO DAILY Losartan [Cozaar] 25 mg PO DAILY Carvedilol 12.5 mg PO BID Levothyroxine Sodium [Levoxyl] 50 mcg PO DAILY Ibuprofen [Motrin] 600 mg PO Q6HR PRN #20 tab PRN Reason: Pain Ondansetron ODT [Zofran ODT] 4 mg SL Q6HR #8 tab.rapdis Discontinued Subcutaneous Insulin Pump [T:Slim] 1 each MC AD Home Medications: Amlodipine Besylate 10 mg PO DAILY 06/21/18 [History] Atorvastatin [Lipitor] 40 mg PO HS 06/21/18 [History] Carvedilol 12.5 mg PO BID 06/21/18 [History] Levothyroxine Sodium [Levoxyl] 50 mcg PO DAILY 06/21/18 [History] Losartan [Cozaar] 25 mg PO DAILY 06/21/18 [History] hydroCHLOROthiazide [Hydrochlorothiazide] 25 mg PO DAILY 06/21/18 [History] Ibuprofen [Motrin] 600 mg PO Q6HR PRN #20 tab 10/11/18 [Rx] Ondansetron ODT [Zofran ODT] 4 mg SL Q6HR #8 tab.rapdis 05/01/19 [Rx] Insulin Glargine,Hum.rec.anlog [Basaglar Kwikpen U-100] 15 unit SQ BID 5 Days #10 insuln.pen 05/13/19 [Rx] Insulin LISPRO [Admelog] 10 unit SQ TIDAC 5 Days #1 vial 05/13/19 [Rx] Allergies/Adverse Reactions: Allergy/AdvReac Type Severity Reaction Status Date / Time desvenlafaxine [From Pristiq] Allergy Swelling Verified 05/12/19 05:08 duloxetine [From Cymbalta] AdvReac Suicidal Verified 05/12/19 05:08 ideations Date of admission: 05/12/19 07:12 Primary care physician: Sophia Foss CNP Consults: 05/12/19 15:03 Consult for Pharmacy Education [CONS] Routine Reason for Consult: DKA, please resume home insulin pump as appropriate. Call Completed: Yes - Constitutional Vitals: Temp Pulse Resp BP Pulse Ox 98.8 F 66 16 141/90 96 05/13/19 12:39 05/13/19 12:39 05/13/19 12:39 05/13/19 12:39 05/13/19 12:39 General appearance: Present: A&O X 3 Exam: General: Alert and oriented, no physical distress, able to follow commands. HEENT: No thyromegaly, no lymphadenopathy, no discharge. Eyes: No discharge. Respiratory: Normal vesicular breathing, no added sounds, breathing equal in both sides. CVS: Normal heart sounds, no murmurs, no edema. Extremities: No peripheral edema, peripheral pulses intact. Lymph nodes: No lymphadenopathy Gastrointestinal: Soft, nontender abdomen, normal abdominal sounds. No distention noted. Genitourinary: No paravertebral tenderness. Neurological: Alert and oriented. No focal deficits. Cranial nerves II-XII intact. - Patient Status Disposition: Home, Self-Care Condition: Good Functional capacity at discharge: independent ambulation Overall status at discharge: patient is back to baseline - Discharge Instructions Follow Up With: Sophia Foss CNP [Primary Care Provider] - 05/20/19 9:15 am Forms: ED Satisfaction Letter - Diet and Activity Activity: increase activity as tolerated Diet: diabetic diet
== END 2019-05-13 16:56 | disposition home or self-care (01) ==
LOC: 2NNU 04:06 → EMEROOARM 04:06 → SUATTDRO 07:12 → 2NNU 08:11
PROVIDERS: ADMIT Pediatrics; ATTEND Internal Medicine